=== PATIENT | female | born 1950 | race Caucasian/White ===

== ENCOUNTER 2017-12-06 09:22 | Inpatient (IN) | payer MEDICARE ==
[2017-12-06 09:48] VITALS: BP 118/79
[2017-12-06] MEDS ORDERED: Magnesium Hydroxide (MOM) 30 mL UDC PO PRN (10:17)
[2017-12-06] MEDS ORDERED: Maalox 30 mL Cup PO PRN (10:17)
--- NOTE | 2017-12-06 11:10 | History & Physical ---
ADMIT DATE: 12/06/2017 MEDICAL HISTORY AND PHYSICAL PATIENT IDENTIFICATION: A 66-year-old female. CHIEF COMPLAINT: "I am fine." HISTORY OF PRESENT ILLNESS: A 66-year-old female transferred from [facility] for further management of her psychotic illness after the patient was hearing voices to kill her . PAST MEDICAL HISTORY: Remarkable for, 1. Chronic fatigue syndrome. 2. Partial complex seizure. 3. Peripheral neuropathy. 4. DJD. MEDICATIONS AT HOME: The patient is taking Risperdal, Seroquel, aspirin and multiple p.r.n. medication. ALLERGIES: THE PATIENT IS ALLERGIC TO PENICILLIN. SOCIAL HISTORY: She lives with her . The patient has no history of smoking cigarette, alcohol, or drug use. FAMILY MEDICAL HISTORY: Remarkable negative for diabetes, hypertension, kidney disease, liver disease. REVIEW OF SYSTEMS: The patient currently denies any headache, blurred vision, double vision, dysphagia, odynophagia, runny nose, stuffy nose, fever, chills, cough, chest pain, shortness of breath, palpitation, dizziness, nausea, vomiting, diarrhea, dysuria, hematuria, hematochezia, melena. No history of any seizure or syncopal episode. PHYSICAL EXAMINATION: GENERAL: The patient is alert, awake, lying in the bed without any acute distress. VITAL SIGNS: Temperature 98, pulse is 64, respiratory rate 18, blood pressure 118/80. HEENT: Normocephalic, atraumatic. Extraocular muscles are intact. Tongue was pink and coated. No oral lesions. No exudate. No sinus tenderness. NECK: Supple. No JVD. No hepatojugular reflux. No lymphadenopathy, thyromegaly or carotid bruit. HEART: Both heart sounds are regular. No S3, no S4, no murmur. CHEST AND LUNGS: Equal in expansion, no expiratory wheezing. ABDOMEN: Soft. No guarding, no rigidity. Liver and spleen not palpable. No palpable mass. EXTREMITIES: No edema, no cyanosis or clubbing. Pulses are +2. No calf tenderness noted. NEUROLOGIC: Alert, awake, oriented to time, place, person. 2-12 cranial nerves intact. Power in upper or lower extremities 5+. Sensation to touch intact. Babinskis in both toes are going down. No cerebral sign. AVAILABLE DIAGNOSTIC DATA: From [facility] has been reviewed. CLINICAL IMPRESSION: 1. Urinary tract infection. 2. Partial complex seizure. 3. Chronic fatigue syndrome. 4. Degenerative joint disease. 5. Psychotic disorder. PLAN: 1. The patient will be placed on Bactrim DS 1 b.i.d. for 5 days for urinary tract infection. 2. Partial complex seizure card, we will provide the seizure precautions and will consider to put the patient on medications once we verify the dose and medication for the partial complex seizure. As far as chronic fatigue syndrome and peripheral neuropathy is concerned, the patient will be observed for now. 3. Psychotic evaluation and management deferred to psychiatrist. The patient is medically stable to participate in the activity provided by the Geropsych Unit. We will continue to follow this patient during the stay in the hospital. I sincerely thank you, Dr. Alejo, for giving me the opportunity to participate in patient of yours. JOB# [id number]
--- NOTE | 2017-12-06 11:21 | Diagnostic Imaging Report ---
CHEST X-RAY: AP view INDICATION: Pneumonia COMPARISON: None FINDINGS: Chronic lung changes are noted. There is no focal consolidation or pleural effusions The heart is normal in size. Degenerative changes of the spine are noted with scoliosis. Cholecystectomy clips are noted. IMPRESSION: Chronic lung changes with no focal consolidation identified. Scoliosis.
[2017-12-06 11:59] LABS: CHOLESTEROL 253 mg/dL (<200); HDL -HIGH DENSITY LIPOPROTEIN 63 mg/dL (23-92); TRIGLYCERIDES 115 mg/dL (<150)
--- NOTE | 2017-12-06 13:48 | Psychiatric Evaluation ---
DATE OF SERVICE: 12/06/2017 IDENTIFYING INFORMATION: The patient is a 66-year-old female. CHIEF COMPLAINT: "I was hearing voices." HISTORY OF PRESENT ILLNESS: The patient was admitted on a hold for grave disability, danger to others. The patient was seen in the Emergency Room with reports of hallucination. Client has a history of psychosis with previous hospitalization when she was interviewed. The patient reported increasing feelings of anxiety related to hallucination, plan reported command auditory hallucination to hurt her . She states that voices are telling her to kill, client cannot formulate a safe plan for self-care, was disorganized unpredictable. When I talked to the patient, she was not a very good historian. She denies any substance abuse. Reports increasing depression ____ voices telling her different things. She was minimizing any current intent to harm herself or anybody. She has not been sleeping well, not eating well. She was able to tell me the date, and the president. She denies any substances use, used to be on Ativan and addicted to it and stopped it 2 years ago. PAST PSYCHIATRIC HISTORY: The patient denies prior suicide attempt. She has prior hospitalizations 3 times, but she was unable to tell me more details about it. MEDICATIONS: The patient has been on Seroquel, Risperdal, and aspirin. MEDICAL HISTORY: She has chronic fatigue, partial complex seizure or peripheral neuropathy, degenerative joint disease. ALLERGIES: THE PATIENT IS ALLERGIC TO PENICILLIN. FAMILY AND SOCIAL HISTORY: The patient is 41 years, no children by no choice, they could have kids. 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 She believes she is happily , though she was threatening her . She lives with her . She reports she has a good relation with him, but she is not a good historian. No family psychotic disorder. No history of abuse. MENTAL STATUS EXAMINATION: The patient is appropriately dressed, not well groomed. She was able to tell me the date. She was able to tell me the President ____ was [place]. She knew she was unable to tell me where she is. She seems to have average intelligence. 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 Recent memory is poor because of psychosis, unable to tell me why she was here. Insight and judgment is impaired. IMPRESSION: Major depression, recurrent with psychosis, rule out schizoaffective disorder. MEDICAL DIAGNOSES: Degenerative joint disease, history of seizure, partial complex seizure. INITIAL TREATMENT PLAN: The patient will continue with her medication, adjust medication as needed. We will do group therapy, milieu therapy, and individual therapy. ESTIMATED LENGTH OF STAY: 3-7 days. DISCHARGE CRITERIA: Decreasing psychosis, no longer threatening. After discharge, outpatient treatment. [facility]# [id number]
[2017-12-06] MEDS: Sulfamethoxazole/TMP 800/160mg Tab PO SCH (16:21)
[2017-12-07 06:05] LABS: % EOSINOPHILS 0.5 % (0.0-5.0); HEMOGLOBIN 14.8 gm/dL (12-16); MEAN CELL VOLUME 89.6 fl (81-100); NEUTROPHILE ABSOLUTE 6.7 Th/cmm (1.8-8.0); PLATELET COUNT 241 Th/cmm (150-400)
[2017-12-07 06:11] LABS: % BASOPHILS 0.3 % (0.0-2.0); % LYMPHOCYTES 19.2 % (20.0-50.0); HEMATOCRIT 41.4 % (41.0-60); LYMPHOCYTE ABSOLUTE 1.8 Th/cmm (1.5-3.0); MEAN CORPUSCULAR HGB CONC 35.8 pg (28.0-36.0); MEAN PLATELET VOLUME 7.6 fl; MONOCYTE ABSOLUTE 0.7 Th/cmm (0.3-1.0); RED BLOOD COUNT 4.62 Mil/cmm (3.80-5.20); RED CELL DISTRIBUTION WIDTH 13.8 % (11.5-20.0); WHITE BLOOD COUNT 9.2 Th/cmm (4.8-10.8)
[2017-12-07 06:17] LABS: ALB/GLOB RATIO 1.8 (1.0-1.8); ALBUMIN 4.2 gm/dL (3.7-5.3); ALKALINE PHOSPHATASE 45 U/L (34-104); ANION GAP 13.8 (7.0-16.0); BILIRUBIN,TOTAL 1.3 mg/dL (0.3-1.0); BUN - UREA NITROGEN 20 mg/dL (7-25); CALCIUM SERUM 9.1 mg/dL (8.6-10.3); CARBON DIOXIDE 22.7 mEq/L (21.0-31.0); CHLORIDE 109 mEq/L (98-107); CREATININE - SERUM 0.9 mg/dL (0.6-1.2); GFR AFRICAN-AMERICAN > 60.0 ml/min (>90); GFR NON AFRICAN-AMERICAN > 60.0 ml/min; GLUCOSE 112 mg/dL (70-105); POTASSIUM SERUM 3.5 mEq/L (3.5-5.1); SGOT 24 U/L (13-39); SGPT/ALT 18 U/L (7-52); SODIUM SERUM 142 mEq/L (136-145); TOTAL PROTEIN,SERUM 6.5 gm/dL (6.0-8.3)
[2017-12-07] MEDS: Sulfamethoxazole/TMP 800/160mg Tab PO SCH ×2 (10:30→17:34)
[2017-12-07] MEDS: Multivitamin Tab PO SCH (10:30)
--- NOTE | 2017-12-07 22:17 | Progress Notes ---
DATE: 12/07/2017 Case was discussed with staff of the patient, reviewed record. Also discussed the care with her who happens to be there. The patient today was somewhat catatonic in a stuporous state. She was psychotic. She was much better yesterday, thus was trying to feed her. He reports that she has not been sleeping well the night prior to admission, she could not sleep at all. He reported that she never tried to harm herself, but she apparently was addicted to Ativan 8 mg a day and she was taken off of it cold turkey a while ago and that is when she started becoming psychotic. She has a history of 3 prior hospitalizations and her said one time, she was at ____ for 6 weeks. The reports that the patient does not do well on Risperdal and that he is not sure if she took Zyprexa. She is on Seroquel 200 mg at bedtime and I would be taking her off this Risperdal. I will be adding a small dose of Zyprexa to be taken during the day to help with her psychosis, if that does not work, I will be probably changing medication and we will continue to work with the patient in group therapy, milieu therapy, and adjust the medication as needed. JOB# [id number]
--- NOTE | 2017-12-07 22:45 | Progress Notes ---
DATE: PATIENT IDENTIFICATION: A 66-year-old female. SUBJECTIVE: The patient was seen and examined. The patient is seen by the psychiatrist. According to the nursing staff, patient was extremely agitated and combative. The patient was reported to scratching her head and poking on her eyes as well. The patient did have a blood test done, which was reviewed. The patient continues to remain confused and disoriented. PHYSICAL EXAMINATION: VITAL SIGNS: Temperature 98.4, pulse 86, respiratory rate 18, blood pressure 122/70. HEENT: No facial asymmetry. NECK: Supple, no JVD. HEART: Regular. CHEST AND LUNG: Equal in expansion, no expiratory wheezing. ABDOMEN: Soft. EXTREMITIES: No edema. CLINICAL IMPRESSION: 1. Hyperlipidemia. 2. Partial complex seizure. 3. Chronic fatigue syndrome. 4. Psychotic disorder. 5. Degenerative joint disease. 6. Urinary tract infection. PLAN: 1. Antibiotic. 2. Psych medication. 3. Fall precautions. 4. Indwelling Cody catheter care. 5. General nursing care. 6. Follow lab. 7. We will continue to follow this patient during the stay in the hospital. JOB# [id number]
[2017-12-08] MEDS: Sulfamethoxazole/TMP 800/160mg Tab PO SCH ×2 (09:39→17:41)
[2017-12-08] MEDS: Multivitamin Tab PO SCH (09:39)
--- NOTE | 2017-12-08 13:46 | Progress Notes ---
DATE: 12/08/2017 PROGRESS ON THE UNIT: Case was discussed with staff of the patient, reviewed records. The staff reported that she did not sleep well last night that they were trying to ____ while she was making a poop, she had feces put on her head. She continues to have poor insight. Continues to be psychotic, unable to make safe plan for self-care or participate in a meaningful conversation. Her lab work showed high MCH and low lymphocyte. The rest within normal range. Chemistry panel with high chloride, high blood sugar, high total bilirubin and the rest within normal range. Lipid profile with high cholesterol at 253. The rest within normal range. Medical doctor will be consulted for that. We will continue to work with the patient in group therapy, milieu therapy, adjust the medication as needed. JOB# [id number]
[2017-12-09] MEDS: Multivitamin Tab PO SCH (09:32)
[2017-12-09] MEDS: Sulfamethoxazole/TMP 800/160mg Tab PO SCH ×2 (09:33→17:14)
--- NOTE | 2017-12-10 00:31 | Progress Notes ---
DATE: IDENTIFICATION: A 66-year-old female. SUBJECTIVE: The patient seen and examined. The patient remained confused, alert, awake without any distress. The patient is ambulating. PHYSICAL EXAMINATION: VITAL SIGNS: Temperature 98.1, pulse 80, respiratory rate 18, and blood pressure 130/74. HEENT: No facial asymmetry. NECK: Supple, no JVD. HEART: Regular. CHEST: Lung equal in expansion, no expiratory wheezing. ABDOMEN: Soft. EXTREMITIES: No edema. CLINICAL IMPRESSION: 1. Urinary tract infection. 2. Partial complex seizure. 3. Psychotic disorder. 4. Degenerative joint disease. 5. Chronic fatigue syndrome. PLAN: 1. Bactrim is ordered for urinary tract infection. 2. Seizure precaution. 3. Psych medication. 4. Psych followup. 5. Nutritional support. 6. Fall precaution. 7. General nursing care. 8. We will continue to follow this patient during her stay in the hospital. JOB# [id number]
--- NOTE | 2017-12-10 02:16 | Progress Notes ---
DATE: 12/09/2017 Case was discussed with staff of the patient, reviewed records. The patient continues to be floridly psychotic. Continues to have poor insight. Continues to be unable to make safe plan for self-care. Continues to be unpredictable and impulsive. Looking disheveled, unable to carry on a conversation or make safe plan for self-care. I will be initiating Abilify on this patient. We will continue to work with the patient in group therapy, milieu therapy, and adjust medication as needed. JOB# [id number]
[2017-12-10] MEDS: Sulfamethoxazole/TMP 800/160mg Tab PO SCH ×3 (09:15→17:08)
[2017-12-10] MEDS: Multivitamin Tab PO SCH ×2 (10:03→11:16)
--- NOTE | 2017-12-10 23:10 | Progress Notes ---
DATE: 12/10/2017 Case was discussed with staff of the patient and reviewed records. The patient is not taking her medications yesterday; however, this morning she did not take it when I came to talk to her, she agreed to take it. Yesterday she was saying she wanted to go to [facility] and I explained to her that she did not take her medication that is when she agreed to take it. This morning, she was willing to take her medication, did add Abilify medication to her, to be started today. She is able to carry a conversation better. She is not psychotic. If she continues to refuse medication we may have to ____ her, so far if she continues to refuse ____ second day. We have to wait 3 days before we have ____ her. She refused also to eat this morning. She slept better. We will continue outpatient group therapy, milieu therapy, and adjust medication as needed. [facility]# [id number]
--- NOTE | 2017-12-11 08:17 | Progress Notes ---
DATE: 12/11/2017 SUBJECTIVE: The patient is in the hospital, hearing voices, psychotic, disrobing, yelling, having to be isolated because she is saying things like "I want hell." The patient with hallucinations, overt psychotic symptoms, refusing to speak with me today. Staff noting she has been unruly, out of control behaviors. ASSESSMENT: The patient is symptomatic, psychotic, disrobing, bizarre, yelling, screaming, nonsensical. PLAN: We will continue to monitor, titrate and adjust medications. Consider dose to increase Abilify. JOB# [id number]
[2017-12-11] MEDS: Sulfamethoxazole/TMP 800/160mg Tab PO SCH ×3 (09:00→17:01)
[2017-12-11] MEDS: Multivitamin Tab PO SCH ×2 (09:01→10:19)
--- NOTE | 2017-12-11 19:22 | Progress Notes ---
DATE: IDENTIFICATION: A 66-year-old female. SUBJECTIVE: The patient seen and examined. The patient is unable to give history. Discussed with nursing staff. The patient has been yelling as well as having hallucinations, not eating and not drinking as well. The patient remained hemodynamically stable at this time. OBJECTIVE: VITAL SIGNS: Temperature 98, pulse is 87, respiratory rate is 18, blood pressure 115/65. HEENT: No facial asymmetry. NECK: Supple, no JVD. HEART: Regular. CHEST AND LUNGS: Equal in expansion, no expiratory wheezing. ABDOMEN: Soft. EXTREMITIES: No edema. CLINICAL IMPRESSION: 1. Impending dehydration and malnutrition. 2. Psychotic disorder exacerbation. 3. Urinary tract infection. PLAN: In the view of not eating and drinking ____ CBC and CMP to be done in the morning. Continue to provide antibiotic for urinary tract infection. Psychiatric evaluation and management deferred to psychiatrist. Care plan reviewed and discussed with staff. JOB# [id number]
[2017-12-12 06:30] LABS: % BASOPHILS 0.3 % (0.0-2.0); % EOSINOPHILS 0.5 % (0.0-5.0); % MONOCYTES 9.1 % (2.0-10.0); % NEUTROPHILS 69.1 % (40.0-80.0); HEMATOCRIT 41.6 % (41.0-60); HEMOGLOBIN 14.2 gm/dL (12-16); MEAN CELL VOLUME 88.6 fl (81-100); MEAN CORPUSCULAR HEMOGLOBIN 30.3 pg (27.0-31.0); MEAN CORPUSCULAR HGB CONC 34.2 pg (28.0-36.0); MONOCYTE ABSOLUTE 0.9 Th/cmm (0.3-1.0); NEUTROPHILE ABSOLUTE 6.7 Th/cmm (1.8-8.0); PLATELET COUNT 159 Th/cmm (150-400); RED CELL DISTRIBUTION WIDTH 13.7 % (11.5-20.0); WHITE BLOOD COUNT 9.6 Th/cmm (4.8-10.8)
[2017-12-12 06:34] LABS: ALB/GLOB RATIO 1.6 (1.0-1.8); ALBUMIN 4.2 gm/dL (3.7-5.3); ALKALINE PHOSPHATASE 54 U/L (34-104); ANION GAP 17.6 (7.0-16.0); BILIRUBIN,TOTAL 1.5 mg/dL (0.3-1.0); BUN - UREA NITROGEN 37 mg/dL (7-25); CALCIUM SERUM 9.2 mg/dL (8.6-10.3); CARBON DIOXIDE 22.3 mEq/L (21.0-31.0); CHLORIDE 108 mEq/L (98-107); CREATININE - SERUM 0.9 mg/dL (0.6-1.2); GFR AFRICAN-AMERICAN > 60.0 ml/min (>90); GFR NON AFRICAN-AMERICAN > 60.0 ml/min; GLUCOSE 118 mg/dL (70-105); POTASSIUM SERUM 3.9 mEq/L (3.5-5.1); SGOT 26 U/L (13-39); SGPT/ALT 25 U/L (7-52); SODIUM SERUM 144 mEq/L (136-145); TOTAL PROTEIN,SERUM 6.8 gm/dL (6.0-8.3)
[2017-12-12] MEDS: Sulfamethoxazole/TMP 800/160mg Tab PO SCH ×2 (08:55→17:11)
[2017-12-12] MEDS: Multivitamin Tab PO SCH (08:57)
--- NOTE | 2017-12-12 12:20 | Progress Notes ---
DATE: 12/12/2017 SUBJECTIVE: A 66-year-old female repetitive, "My time to be sleeping." "I am sleeping." "I am sleeping." "I am sleeping." Delusional, bizarre, symptomatic, consistently disrobing for unclear reasons. The patient requiring emergency medications today, refusing treatments, requiring emergency Haldol, psychosis, agitation, psychotic decompensation, disrobing, poor redirection. ASSESSMENT: The patient is acutely psychotic, bizarre, disorganized, believing that she is the devil. PLAN: We will continue to monitor given her ongoing symptoms, she is not safe for discharge. JOB# [id number]
--- NOTE | 2017-12-12 17:25 | Progress Notes ---
DATE: 12/12/2017 PATIENT IDENTIFICATION: A 66-year-old female. SUBJECTIVE: The patient is seen and examined. The patient has a bizarre behavior along with not following any commands. Psychiatrist has been managing her psychotropic medication. Since she was not eating and drinking, CBC and CMP is ordered, which I reviewed. The patient remained hemodynamically stable at this time. PHYSICAL EXAMINATION: HEENT: Poor dentition. NECK: Supple, no JVD. HEART: Regular. CHEST AND LUNGS: Equal in expansion, no expiratory wheezing. ABDOMEN: Soft, no guarding or rigidity. Bowel sounds present. No palpable mass. EXTREMITIES: No edema. NEUROLOGIC: Nonfocal. CLINICAL IMPRESSION: 1. Psychotic disorder exacerbation with poor p.o. intake, impending dehydration, malnutrition, CBC, CMP, looks acceptable at this time. 2. Urinary tract infection. 3. Partial complex seizure by history. 4. Degenerative joint disease. PLAN: 1. Psychotic evaluation and management deferred to psychiatrist. 2. Antibiotic as prescribed. 3. Follow up labs in 2 days. 4. Encourage her to have p.o. intake. 5. On general nursing care. 6. Fall precautions. 7. Care plan reviewed and discussed with staff. JOB# [id number]
[2017-12-13] MEDS: Sulfamethoxazole/TMP 800/160mg Tab PO SCH ×2 (09:26→17:29)
[2017-12-13] MEDS: Multivitamin Tab PO SCH (09:26)
--- NOTE | 2017-12-13 10:46 | Progress Notes ---
DATE: 12/13/2017 SUBJECTIVE: A 66-year-old female. SUBJECTIVE: The patient seen and examined. The patient is ambulatory. The patient still has a disorganized thought. The patient is still disorganized and disheveled. The patient does not provide any meaningful history. Discussed with nursing staff about their consent. OBJECTIVE: VITAL SIGNS: Temperature 97.8, pulse is 97, respiratory rate 18, blood pressure 103/73. HEENT: No facial asymmetry. NECK: Supple, no JVD. HEART: Regular. CHEST AND LUNGS: Equal in expansion with expiratory wheezing. ABDOMEN: Soft. EXTREMITIES: No edema. NEUROLOGIC: Nonfocal. CLINICAL IMPRESSION: 1. Psychotic disorder exacerbation. 2. Urinary tract infection. 3. Hyperlipidemia. 4. Partial complex seizure. 5. Degenerative joint disease. PLAN: 1. Psychotropic medication as per psychiatrist. 2. Antibiotic. 3. Fall precautions. 4. Nutritional support. 5. General nursing care. 6. Follow up lab in order to assess the patient's malnutrition and dehydration status. 7. We will continue to follow this patient during the stay in the hospital. [facility]# [id number]
--- NOTE | 2017-12-14 00:13 | Progress Notes ---
DATE: 12/13/2017 Case was discussed with staff of the patient, reviewed records. The patient continues to be unpredictable, impulsive, internally preoccupied, responding to internal stimuli. Continues to be unable to make safe plan for self-care. She has been constantly disrobing for unclear reason, acting bizarre. She has been compliant with the medication with no side effects, no sedation, no nausea, no extrapyramidal symptoms. Seroquel dose has been adjusted. She was initiated on Depakote 250 mg twice a day by Dr. Rust We will continue to work with the patient in group therapy, milieu therapy, and adjust the medication as needed. JOB# [id number]
[2017-12-14] MEDS: Multivitamin Tab PO SCH (09:17)
--- NOTE | 2017-12-14 20:08 | Progress Notes ---
DATE: 12/14/2017 Case was discussed with staff of the patient. I also talked to her . The patient is showing progress. She is able to speak, express herself. She did show a lot of progress since adding Abilify to her. She took Seroquel for a few days at the beginning with no good outcome. She only started improving after taking the Seroquel. I will be discontinuing the Seroquel during the day. The patient will make her sleepy, so I will keep her only on the Seroquel at bedtime and working on discharge plan. The patient is more clear, unable to however tell me the date. She recognizes her . No side effects with the medication, no sedation, no nausea, no extrapyramidal symptoms. I will continue to work with the patient in group therapy, milieu therapy, adjust medication as needed. JOB# [id number]
[2017-12-15] MEDS: Multivitamin Tab PO SCH (09:13)
--- NOTE | 2017-12-15 10:19 | Progress Notes ---
DATE: 12/15/2017 Case was discussed with staff of the patient and reviewed records. The patient reports she is still hearing voices. However, she seems to being a little bit more clear. She is able to carry on a conversation. She is not trying to put feces on herself like she was doing few days ago. She seems to have tolerated Abilify well. I am increasing Abilify to 10 mg a day to help to decrease her psychotic symptoms that she seems to have responded better when that was added. I did take her off the Seroquel during the day and so far no side effects of the medication, no sedation, no nausea, no extrapyramidal symptoms. We will continue outpatient group therapy, milieu therapy, adjust medication as needed. JOB# [id number]
[2017-12-16] MEDS: Multivitamin Tab PO SCH (08:42)
--- NOTE | 2017-12-16 13:16 | Psychiatric Evaluation ---
DATE OF SERVICE: 12/16/2017 Case was discussed with staff of the patient, reviewed records. The patient continues to have poor insight. She was psychotic this morning with blocked thoughts. Apparently, she refused to take her medication. She was ____ last night and could not sleep all night. She was in a chair. She is unpredictable and impulsive. I tried to convince her to take her medication together with the two nurses who were taking care of her and finally she agree to take some of them. I was planning actually to discharge her, but she seemed like going backwards, so I just will be asking for a second opinion from Dr. Marshall, the curator medical museum and so far no side effects with the medication, no sedation, no nausea, no extrapyramidal symptoms. We will continue to work with the patient in group therapy, milieu therapy, adjust the medication as needed. JOB# [id number]
[2017-12-17] MEDS: Multivitamin Tab PO SCH (08:41)
--- NOTE | 2017-12-17 23:21 | Progress Notes ---
DATE: 12/17/2017 Case was discussed with staff of the patient, reviewed records. The staff report, the patient has been selective about taking her medication. The patient so far continues to be unpredictable. She is responding to internal stimuli. Reports hearing voices. It took a while me having to ask a few questions. She would not answer it appropriately. No side effects with the medication, no sedation, no nausea, no extrapyramidal symptoms. I will be increasing the Seroquel dose and add 50 mg twice a day to help with her psychotic symptoms. She is still psychotic, unpredictable and impulsive. Today, she was calling 911 on the phone this morning from the staff phone and they had to interrupt her. So, I will be increasing Seroquel to add 50 mg twice a day to calm her down during the day and she is not a candidate yet for discharge though 2 days ago, she did a little bit better and I thought she was approaching discharge; however, apparently within a few hours, she got worse. No side effects with the medication, no sedation, no nausea, no extrapyramidal symptoms. We will continue to work with the patient in group therapy, milieu therapy and adjust the medication as needed. JOB# [id number]
[2017-12-18] MEDS: Multivitamin Tab PO SCH ×2 (08:48→09:17)
[2017-12-18] MEDS ORDERED: Haloperidol Lactate 5 mg/mL 1mL Vial IM STA (10:24)
[2017-12-18] MEDS ORDERED: Haloperidol Lactate 5 mg/mL 1mL Vial ONE (10:31)
[2017-12-18 11:23] LABS: % BASOPHILS 1.6 % (0.0-2.0); % EOSINOPHILS 0.9 % (0.0-5.0); % LYMPHOCYTES 16.8 % (20.0-50.0); % MONOCYTES 7.3 % (2.0-10.0); % NEUTROPHILS 73.4 % (40.0-80.0); BASOPHILE ABSOLUTE 0.1 Th/cumm (0-0.2); EOSINOPHILE ABSOLUTE 0.1 Th/cmm (0.1-0.4); HEMATOCRIT 40.7 % (41.0-60); HEMOGLOBIN 13.9 gm/dL (12-16); LYMPHOCYTE ABSOLUTE 1.1 Th/cmm (1.5-3.0); MEAN CELL VOLUME 89.8 fl (81-100); MEAN CORPUSCULAR HEMOGLOBIN 30.7 pg (27.0-31.0); MEAN CORPUSCULAR HGB CONC 34.2 pg (28.0-36.0); MEAN PLATELET VOLUME 7.4 fl; MONOCYTE ABSOLUTE 0.5 Th/cmm (0.3-1.0); NEUTROPHILE ABSOLUTE 4.7 Th/cmm (1.8-8.0); PLATELET COUNT 232 Th/cmm (150-400); RED BLOOD COUNT 4.52 Mil/cmm (3.80-5.20); RED CELL DISTRIBUTION WIDTH 13.6 % (11.5-20.0); WHITE BLOOD COUNT 6.5 Th/cmm (4.8-10.8)
[2017-12-18 11:36] LABS: ALB/GLOB RATIO 1.7 (1.0-1.8); ALBUMIN 4.1 gm/dL (3.7-5.3); ALKALINE PHOSPHATASE 51 U/L (34-104); ANION GAP 18.6 (7.0-16.0); BUN - UREA NITROGEN 28 mg/dL (7-25); CALCIUM SERUM 9.4 mg/dL (8.6-10.3); CARBON DIOXIDE 20.6 mEq/L (21.0-31.0); CHLORIDE 108 mEq/L (98-107); CREATININE - SERUM 0.8 mg/dL (0.6-1.2); GFR AFRICAN-AMERICAN > 60.0 ml/min (>90); GFR NON AFRICAN-AMERICAN > 60.0 ml/min; GLUCOSE 105 mg/dL (70-105); POTASSIUM SERUM 4.2 mEq/L (3.5-5.1); SGOT 19 U/L (13-39); SGPT/ALT 19 U/L (7-52); SODIUM SERUM 143 mEq/L (136-145); TOTAL PROTEIN,SERUM 6.5 gm/dL (6.0-8.3)
--- NOTE | 2017-12-18 23:41 | Progress Notes ---
DATE: 12/18/2017 Case was discussed with staff of the patient, reviewed records. The patient is not doing well. She is refusing medication, not eating, actually she is getting worse, had to be medicated this morning because of her psychosis, agitation. When I tried to talk to her, she was internally preoccupied. Unable to make safe plan for self-care, unpredictable and impulsive. I asked for a second opinion from Dr. Marshall, is still pending and family came in yesterday, but I am not sure if they did tell him about it or did not that it was not done so far. I asked the staff again to make sure Dr. Marshall become aware of this consult. It is very important that he does it and so far there have been no side effects with the medication when she takes it. No sedation, no nausea and no extrapyramidal symptoms. I asked the staff to see if they can transfer to medical floor because of her not eating and we will continue outpatient group therapy, milieu therapy, and adjust the medications as needed. JOB# [id number]
[2017-12-19] MEDS: Multivitamin Tab PO SCH (08:17)
[2017-12-19] MEDS ORDERED: Haloperidol Lactate 5 mg/mL 1mL Vial IM ONE (08:30)
--- NOTE | 2017-12-19 13:39 | Consultation ---
DATE OF CONSULTATION: 12/19/2017 PSYCHIATRIC CONSULTATION CONSULTATION REQUESTED BY: Tammy Alejo M.D. I have tried to interview the patient yesterday as well as today. The patient is selectively mute and I am not getting much out of it. The patient is also reported to have been refusing to eat or drink and hence a stat CBC and SMA-7 were done and they are noted to be within normal limit so far. The patient is currently on antipsychotic medications. We would like to continue these medications and reassess the patient. Thank you. JOB# [id number]
--- NOTE | 2017-12-19 16:23 | Progress Notes ---
DATE: 12/19/2017 SUBJECTIVE: Case was discussed with staff of the patient. The patient has an episode today where she was acting out. She has to be given emergency medication. Continues to be internally preoccupied, refusing to eat, did not eat breakfast this morning; however, they managed to give her medication. I discussed her care with Dr. Marshall he said he evaluated her yesterday; however, I do not see any dictated consult on her, but she agrees that the patient is still at risk for discharge because of her psychotic symptoms. She has been so far not taking medication on a regular basis, so it is hard to adjust it at this point, though she is on a good dose of Seroquel as well as Abilify with no side effects, no sedation, no nausea and no extrapyramidal symptoms. She got ____ this morning 5 mg with Ativan 1 mg and Benadryl 50. We will continue to work the patient with group therapy, milieu therapy, adjust medications. JOB# [id number]
[2017-12-20] MEDS: Multivitamin Tab PO SCH ×3 (08:57→12:42)
[2017-12-20 10:18] LABS: ALB/GLOB RATIO 1.6 (1.0-1.8); ALBUMIN 3.6 gm/dL (3.7-5.3); ALKALINE PHOSPHATASE 49 U/L (34-104); ANION GAP 17.1 (7.0-16.0); BILIRUBIN,TOTAL 1.4 mg/dL (0.3-1.0); BUN - UREA NITROGEN 23 mg/dL (7-25); CALCIUM SERUM 8.5 mg/dL (8.6-10.3); CARBON DIOXIDE 22.5 mEq/L (21.0-31.0); CHLORIDE 105 mEq/L (98-107); CREATININE - SERUM 0.7 mg/dL (0.6-1.2); GFR AFRICAN-AMERICAN > 60.0 ml/min (>90); GFR NON AFRICAN-AMERICAN > 60.0 ml/min; GLUCOSE 78 mg/dL (70-105); POTASSIUM SERUM 3.6 mEq/L (3.5-5.1); SGOT 31 U/L (13-39); SGPT/ALT 17 U/L (7-52); SODIUM SERUM 141 mEq/L (136-145); TOTAL PROTEIN,SERUM 5.8 gm/dL (6.0-8.3)
[2017-12-20 10:42] LABS: % BASOPHILS 0.1 % (0.0-2.0); % EOSINOPHILS 0.9 % (0.0-5.0); % LYMPHOCYTES 20.7 % (20.0-50.0); % NEUTROPHILS 70.3 % (40.0-80.0); EOSINOPHILE ABSOLUTE 0.1 Th/cmm (0.1-0.4); HEMATOCRIT 38.5 % (41.0-60); HEMOGLOBIN 13.4 gm/dL (12-16); LYMPHOCYTE ABSOLUTE 1.2 Th/cmm (1.5-3.0); MEAN CORPUSCULAR HEMOGLOBIN 31.3 pg (27.0-31.0); MEAN CORPUSCULAR HGB CONC 34.7 pg (28.0-36.0); MEAN PLATELET VOLUME 7.5 fl; MONOCYTE ABSOLUTE 0.4 Th/cmm (0.3-1.0); NEUTROPHILE ABSOLUTE 3.9 Th/cmm (1.8-8.0); PLATELET COUNT 222 Th/cmm (150-400); RED BLOOD COUNT 4.28 Mil/cmm (3.80-5.20); RED CELL DISTRIBUTION WIDTH 13.2 % (11.5-20.0); WHITE BLOOD COUNT 5.6 Th/cmm (4.8-10.8)
--- NOTE | 2017-12-20 12:23 | Diagnostic Imaging Report ---
Portable chest x-ray History: Cough Allowing for portable technique the heart size is normal. No focal pulmonary parenchymal processes. No hilar or mediastinal abnormalities. There is a mild scoliosis of the thoracolumbar spine convexity left. No change from 12/06/2017. Impression: No acute abnormalities.
--- NOTE | 2017-12-20 23:44 | Progress Notes ---
DATE: 12/20/2017 SUBJECTIVE: Case was discussed with staff of the patient, reviewed records. Also met with her who happens to be there. Her reports that she is not there. She is psychotic. Today, the is telling me that the patient used to be on Risperdal that really helped her, to be stable for a long period of time and then she tapered it very slowly because she complained about it to her psychiatrist at that time and he tapered her very slowly over a long period of time and she stopped taking it about 4 weeks ago and that is when she started going downhill. She is a highly functioning lady. She has a very good job. The patient was reluctant to start Risperdal again, but finally she agreed after talking to her. Her tried to explain to her and I did that, she needs really to be in good shape and she need to be out of this and out of this place, so I will be initiating Risperdal on her. She agreed to take only 0.5 mg twice a day. Apparently, she was able to do well on a smaller dose for a long period of time as her medication was tapered very slowly over 7 months. Discussed side effects of the medication. The patient is still not ready to go to a lesser level of care and will discontinue Abilify, keep her on Risperdal. I will continue outpatient group therapy, milieu therapy, adjust medication as needed. The patient would like to add that she was able to eat today and she slept better. JOB# [id number]
[2017-12-21] MEDS: Multivitamin Tab PO SCH (09:09)
--- NOTE | 2017-12-21 15:14 | Progress Notes ---
DATE: 12/21/2017 Case was discussed with staff of the patient, reviewed records. The patient is a little bit more clear today. I also reviewed the consult from Dr. Marshall, he recommended that we continue with the medication that he cannot get any information from her. He will let us later, so far I did start on Risperdal yesterday, which has been told me that this is the best thing that works for her and took off Abilify and she only agreed to take 0.5 mg twice a day. She hated Risperdal, but she managed to stay on it stable for a few years and she tapered slowly and when she stopped it about 4 weeks prior to her admission she started going downhill. The patient today is eating. She is sleeping better. She is bit more clear, though she continues, the staff report that she is sleeping a lot more. No side effects with the medication other than some sedation or may be because she has not slept for a while and we will continue to work with the patient in group therapy, milieu therapy, adjust medication as needed. JOB# [id number]
[2017-12-22] MEDS: Multivitamin Tab PO SCH (09:14)
--- NOTE | 2017-12-22 12:39 | Discharge Summary ---
DATE OF DISCHARGE: 12/22/2017 IDENTIFYING INFORMATION: The patient is a 66-year-old female. CHIEF COMPLAINT: "I am hearing voices." HISTORY OF PRESENT ILLNESS: The patient was admitted on a hold for gait disability, danger to others. The patient was seen in the Emergency Room with reports of hallucination with a history of psychosis with previous hospitalization when she was interviewed. She reported increasing in feeling anxiety, related hallucination, reported command auditory hallucinations to hurt her . She states that the voices are telling her to kill the client, cannot formulate a safe plan for self-care, was disorganized and unpredictable. When I talked to the patient, she was not a very good historian. She denies any substance abuse. She reports increasing depression and the voices telling her different things. She was minimizing any current intent to harm herself or anybody. She has not been sleeping well, not eating well. She was able to tell me the date and the president. She denies any substance abuse, used to be on Ativan and stopped it 2 years ago. PAST PSYCHIATRIC HISTORY: Has no prior suicide attempts. She has prior hospitalization 3 times. She was unable to tell me more details. She has been on Seroquel, Risperdal, and aspirin. COURSE IN THE HOSPITAL: The patient was continued with the Seroquel, the dose was increased to 50 mg twice a day and 400 mg at bedtime, added Abilify, increased to 10 mg. However, she is doing well. She did improve a little bit, but then she deteriorated, then one day her told me that she did the best when she was on Risperdal. She took it for years and apparently she stopped it slowly over the past few months and last took it a month ago and that when she started deteriorating so at that point, I felt the patient needed to be back on it. She agreed to take only 0.5 mg twice a day. She do not liked it to using in the past; however, she is in need to using it now that she is not doing any at all well. Also, the patient was given Depakote 250 mg twice a day. The patient as she improved, she was sleeping well, eating well, no longer acting in any way psychotic. She was alert, oriented to place, person, time, and situation with no intent to harm herself or anybody with no hallucination or paranoia. We thought she could be discharged to a lesser level of care. The patient will be going to [facility]. The patient already has agreed to it and her apparently went and visited and he likes it. FINAL DIAGNOSES: Major depression, recurrent with psychosis, rule out schizoaffective disorder. MEDICAL DIAGNOSES: Degenerative joint disease, history of seizure, partial complex seizure. The patient will follow up with the psychiatrist, primary care physician and a therapist and a neurologist. EXPECTED OUTCOME: Stable if the patient complies above, I talked to the , met him many times and called him this morning prior to her discharge and he agrees that she is ready to go and he will come to try to help with her discharge. [facility]# [id number]
== END 2017-12-22 16:30 | DRG 885 ==
LOC: GERO2 09:22
PROVIDERS: ADMIT Psychiatry & Neurology Psychiatry; ATTEND Psychiatry & Neurology Psychiatry
DX: F33.3 Major depressive disorder, recurrent, severe with psychotic symptoms (principal); G40.209 Localization-related (focal) (partial) symptomatic epilepsy and epileptic syndromes with complex partial seizures, not intractable, without status epilepticus; N39.0 Urinary tract infection, site not specified; E46 Unspecified protein-calorie malnutrition; F29 Unspecified psychosis not due to a substance or known physiological condition; G62.9 Polyneuropathy, unspecified; E78.5 Hyperlipidemia, unspecified; E86.0 Dehydration; M19.90 Unspecified osteoarthritis, unspecified site; Z88.0 Allergy status to penicillin; Z82.49 Family history of ischemic heart disease and other diseases of the circulatory system; Z83.3 Family history of diabetes mellitus; Z68.24 Body mass index [BMI] 24.0-24.9, adult
CPT/HCPCS: 36415-UA; 71045-TC; 80053-TC; 80061-TC; 83036-90; 85025-TC; 90899; 93005; J1200; J1630; J2060; Z7610